=== PATIENT | male | born 1955 | race Caucasian/White ===

== ENCOUNTER 2018-03-30 13:20 | Emergency (ER) | payer OTHER ==
[2018-03-30] MEDS: HYDROCODONE/APAP (10/325) TAB PO ×2 (14:06→15:25)
== END 2018-03-30 15:40 | disposition home or self-care (01) ==
LOC: E/R 13:20
DX: G89.4 Chronic pain syndrome (principal); R40.2142 Coma scale, eyes open, spontaneous, at arrival to emergency department; R40.2362 Coma scale, best motor response, obeys commands, at arrival to emergency department; R40.2252 Coma scale, best verbal response, oriented, at arrival to emergency department; Z87.891 Personal history of nicotine dependence
CPT/HCPCS: 99283; Z7610

== ENCOUNTER 2018-07-13 19:26 | Inpatient (IN) | payer OTHER ==
[2018-07-13] MEDS: PIPER-TAZO 3.375 GM IV (PMX) 100 ML IVPB (21:51)
[2018-07-13] MEDS ORDERED: ACETAMINOPHEN 325 MG TAB PO (23:30)
[2018-07-13] MEDS ORDERED: ONDANSETRON 4 MG INJ IV (23:30)
[2018-07-14] MEDS: morphine (ER) 30 MG TAB PO ×2 (00:39→22:43)
[2018-07-14] MEDS: METHADONE 10 MG TAB PO ×2 (00:39→20:36)
[2018-07-14] MEDS: BUSPIRONE 10 MG TAB PO ×2 (00:40→21:20)
[2018-07-14] MEDS ORDERED: LIDOCAINE 1% (MPF) 5 ML VIAL SC (05:00)
[2018-07-14] MEDS ORDERED: PENDING SANTYL ORDER FOR WOUND CARE XX (07:00)
[2018-07-14 07:13] LABS: ADD MAN DIFF? NO; BASOPHILS % 0.5 % (0.0-2.0); EOSINOPHILS # 0.1 10^3/ul (0.0-0.5); EOSINOPHILS % 1.6 % (0.0-7.0); HEMATOCRIT 32.7 % (42.0-52.0); HEMOGLOBIN 10.3 g/dl (14.0-18.0); LYMPHOCYTES # 0.7 10^3/ul (0.8-2.9); LYMPHOCYTES % 11.4 % (15.0-51.0); MEAN CORPUSCULAR HEMOGLOBIN 29.9 pg (29.0-33.0); MEAN CORPUSCULAR HGB CONC 31.5 g/dl (32.0-37.0); MEAN CORPUSCULAR VOLUME 95.1 fl (82.0-101.0); MEAN PLATELET VOLUME 9.2 fl (7.4-10.4); MONOCYTE # 0.5 10^3/ul (0.3-0.9); MONOCYTES % 8.5 % (0.0-11.0); NEUTROPHIL # 4.9 10^3/ul (1.6-7.5); NEUTROPHILS % 77.5 % (39.0-77.0); PLATELET COUNT 137 10^3/UL (140-415); RED BLOOD COUNT 3.44 10^6/ul (4.70-6.10); RED CELL DISTRIBUTION WIDTH 13.6 % (11.5-14.5)
[2018-07-14 07:13] LABS: WHITE BLOOD COUNT 6.3 10^3/ul (4.8-10.8)
[2018-07-14 07:32] LABS: ANION GAP 3 (5-13); BLOOD UREA NITROGEN 5 mg/dl (7-20); CALCIUM 8.3 mg/dl (8.4-10.2); CARBON DIOXIDE 31 mmol/L (21-31); CHLORIDE 108 mmol/L (97-110); CREATININE 0.63 mg/dl (0.61-1.24); Estimated GFR > 60 mL/min (>60); GLUCOSE 122 mg/dl (70-220); POTASSIUM 3.9 mmol/L (3.5-5.1); SODIUM 142 mmol/L (135-144)
[2018-07-14] MEDS: NICOTINE (21 MG/24 HR) PATCH TRANSDERM (08:54)
[2018-07-14] MEDS: LIDOCAINE 1% (MPF) 5 ML VIAL SC (11:45)
[2018-07-14] MEDS: morphine 2 MG INJ IM ×2 (12:59→17:07)
[2018-07-14] MEDS: CYCLOBENZAPRINE 10 MG TAB PO ×2 (13:00→21:20)
[2018-07-14] MEDS ORDERED: ACETAMINOPHEN 325 MG TAB PO (14:30)
[2018-07-14] MEDS ORDERED: morphine (ER) 15 MG TAB PO (14:30)
[2018-07-14] MEDS: morphine (ER) 15 MG TAB PO (14:31)
[2018-07-14] MEDS ORDERED: VANCOMYCIN IV PER PHARMACY XX (17:00)
[2018-07-14] MEDS: VANCOMYCIN HCL 1.75 GM in SOD CHLORIDE 0.9% 500 ML IVPB (20:36)
[2018-07-14] MEDS: DOCUSATE SODIUM 100 MG CAP PO (21:20)
[2018-07-14] MEDS: MIRTAZAPINE 15 MG TAB PO (22:43)
[2018-07-15] MEDS: MEROPENEM 1 GM/50ML(PMX) 50 ML IVPB ×4 (00:55→22:29)
[2018-07-15] MEDS ORDERED: LEVOTHYROXINE 25 MCG TAB (05:06)
[2018-07-15] MEDS: morphine 2 MG INJ IV ×2 (06:02→13:04)
[2018-07-15] MEDS: LEVOTHYROXINE 25 MCG TAB PO (06:02)
[2018-07-15] MEDS ORDERED: morphine (ER) 15 MG TAB PO (09:00)
[2018-07-15] MEDS: VANCOMYCIN HCL 1.5 GM in SOD CHLORIDE 0.9% 250 ML IVPB ×2 (09:21→23:12)
[2018-07-15] MEDS: BUSPIRONE 10 MG TAB PO ×2 (09:21→22:31)
[2018-07-15] MEDS: DOCUSATE SODIUM 100 MG CAP PO ×2 (09:21→22:29)
[2018-07-15] MEDS: CYCLOBENZAPRINE 10 MG TAB PO ×3 (09:21→22:29)
[2018-07-15] MEDS: morphine (ER) 15 MG TAB PO ×2 (09:21→13:58)
[2018-07-15] MEDS: ASPIRIN (EC) 81 MG TAB PO (09:21)
[2018-07-15] MEDS: METHADONE 10 MG TAB PO ×3 (09:22→22:34)
[2018-07-15] MEDS: NICOTINE (21 MG/24 HR) PATCH TRANSDERM (09:25)
[2018-07-15] MEDS: MAGNESIUM OXIDE 400 MG TAB PO (09:28)
[2018-07-15] MEDS: AMMONIUM LACTATE 12% 225 GM LOT TOP (13:26)
[2018-07-15] MEDS: COLLAGENASE 5 GM (UD JAR) TOP (13:27)
[2018-07-15] MEDS: SODIUM HYPOCHLORITE (1/40) 1 LITER BTL IRR (15:30)
[2018-07-15 15:51] LABS: C-REACTIVE PROTEIN 2.7 mg/dl (0.0-0.9)
[2018-07-15 16:46] LABS: ERYTHROCYTE SEDIMENTATION RATE 30 mm/Hr (0-20)
[2018-07-15] MEDS: morphine (ER) 30 MG TAB PO (22:30)
[2018-07-15] MEDS: MIRTAZAPINE 15 MG TAB PO (22:30)
[2018-07-16] MEDS: morphine 2 MG INJ IV ×3 (02:39→16:56)
[2018-07-16] MEDS: MEROPENEM 1 GM/50ML(PMX) 50 ML IVPB ×3 (05:39→21:09)
[2018-07-16] MEDS: LEVOTHYROXINE 25 MCG TAB PO (05:40)
[2018-07-16 05:55] LABS: ADD MAN DIFF? NO
[2018-07-16 06:01] LABS: BASOPHILS % 0.3 % (0.0-2.0); EOSINOPHILS # 0.2 10^3/ul (0.0-0.5); EOSINOPHILS % 7.5 % (0.0-7.0); HEMATOCRIT 30.6 % (42.0-52.0); HEMOGLOBIN 9.5 g/dl (14.0-18.0); LYMPHOCYTES # 0.8 10^3/ul (0.8-2.9); LYMPHOCYTES % 23.8 % (15.0-51.0); MEAN CORPUSCULAR HEMOGLOBIN 29.6 pg (29.0-33.0); MEAN CORPUSCULAR VOLUME 95.3 fl (82.0-101.0); MEAN PLATELET VOLUME 8.9 fl (7.4-10.4); MONOCYTE # 0.4 10^3/ul (0.3-0.9); MONOCYTES % 12.2 % (0.0-11.0); NEUTROPHIL # 1.8 10^3/ul (1.6-7.5); NEUTROPHILS % 55.3 % (39.0-77.0); PLATELET COUNT 122 10^3/UL (140-415); RED BLOOD COUNT 3.21 10^6/ul (4.70-6.10); RED CELL DISTRIBUTION WIDTH 13.5 % (11.5-14.5)
[2018-07-16 06:01] LABS: WHITE BLOOD COUNT 3.2 10^3/ul (4.8-10.8)
[2018-07-16 06:47] LABS: CREATININE 0.56 mg/dl (0.61-1.24)
[2018-07-16 06:56] LABS: ANION GAP 5 (5-13); BLOOD UREA NITROGEN 5 mg/dl (7-20); CALCIUM 7.9 mg/dl (8.4-10.2); CARBON DIOXIDE 26 mmol/L (21-31); CHLORIDE 110 mmol/L (97-110); CREATININE 0.55 mg/dl (0.61-1.24); Estimated GFR > 60 mL/min (>60); GLUCOSE 109 mg/dl (70-220); POTASSIUM 3.4 mmol/L (3.5-5.1); SODIUM 141 mmol/L (135-144)
[2018-07-16] MEDS: BUSPIRONE 10 MG TAB PO ×2 (08:14→20:57)
[2018-07-16] MEDS: CYCLOBENZAPRINE 10 MG TAB PO ×3 (08:14→20:57)
[2018-07-16] MEDS: morphine (ER) 15 MG TAB PO ×2 (08:15→13:54)
[2018-07-16] MEDS: DOCUSATE SODIUM 100 MG CAP PO ×2 (08:15→20:57)
[2018-07-16] MEDS: ASPIRIN (EC) 81 MG TAB PO (08:15)
[2018-07-16] MEDS: MAGNESIUM OXIDE 400 MG TAB PO (08:15)
[2018-07-16] MEDS: METHADONE 10 MG TAB PO ×3 (08:16→20:57)
[2018-07-16] MEDS: NICOTINE (21 MG/24 HR) PATCH TRANSDERM (08:16)
[2018-07-16] MEDS ORDERED: SODIUM HYPOCHLORITE (1/40) 1 LITER BTL IRR (09:00)
[2018-07-16] MEDS: ARTIFICIAL TEARS 15 ML OPH BOTH EYES ×2 (09:13→22:31)
[2018-07-16] MEDS: VANCOMYCIN HCL 1.5 GM in SOD CHLORIDE 0.9% 250 ML IVPB ×3 (09:13→22:19)
[2018-07-16 10:50] LABS: VANCOMYCIN,TROUGH 12.7 ug/ml (10.0-20.0)
[2018-07-16] MEDS: COLLAGENASE 5 GM (UD JAR) TOP (11:26)
[2018-07-16] MEDS: SODIUM HYPOCHLORITE (1/40) 1 LITER BTL IRR (11:27)
[2018-07-16] MEDS: POTASSIUM CHLORIDE (SR) 20 MEQ TAB PO (12:07)
[2018-07-16] MEDS: AMMONIUM LACTATE 12% 225 GM LOT TOP (15:08)
[2018-07-16] MEDS: MIRTAZAPINE 15 MG TAB PO (20:57)
[2018-07-16] MEDS: morphine (ER) 30 MG TAB PO (21:01)
[2018-07-17] MEDS: morphine 2 MG INJ IV (02:24)
[2018-07-17] MEDS: MEROPENEM 1 GM/50ML(PMX) 50 ML IVPB ×2 (05:13→13:51)
[2018-07-17 05:22] LABS: ADD MAN DIFF? NO
[2018-07-17 05:41] LABS: BASOPHILS % 1.1 % (0.0-2.0); EOSINOPHILS # 0.3 10^3/ul (0.0-0.5); EOSINOPHILS % 9.8 % (0.0-7.0); HEMATOCRIT 29.7 % (42.0-52.0); HEMOGLOBIN 9.5 g/dl (14.0-18.0); LYMPHOCYTES # 0.9 10^3/ul (0.8-2.9); LYMPHOCYTES % 33.1 % (15.0-51.0); MEAN CORPUSCULAR HEMOGLOBIN 29.7 pg (29.0-33.0); MEAN CORPUSCULAR VOLUME 92.8 fl (82.0-101.0); MEAN PLATELET VOLUME 8.9 fl (7.4-10.4); MONOCYTE # 0.3 10^3/ul (0.3-0.9); MONOCYTES % 10.9 % (0.0-11.0); NEUTROPHIL # 1.2 10^3/ul (1.6-7.5); NEUTROPHILS % 44.3 % (39.0-77.0); PLATELET COUNT 127 10^3/UL (140-415); RED CELL DISTRIBUTION WIDTH 13.6 % (11.5-14.5)
[2018-07-17 05:41] LABS: WHITE BLOOD COUNT 2.7 10^3/ul (4.8-10.8)
[2018-07-17 06:09] LABS: ANION GAP 5 (5-13); BLOOD UREA NITROGEN 4 mg/dl (7-20); CARBON DIOXIDE 28 mmol/L (21-31); CHLORIDE 110 mmol/L (97-110); CREATININE 0.53 mg/dl (0.61-1.24); Estimated GFR > 60 mL/min (>60); GLUCOSE 102 mg/dl (70-220); POTASSIUM 3.7 mmol/L (3.5-5.1); SODIUM 143 mmol/L (135-144)
[2018-07-17] MEDS: LEVOTHYROXINE 25 MCG TAB PO (07:01)
[2018-07-17] MEDS: CYCLOBENZAPRINE 10 MG TAB PO ×3 (09:46→21:03)
[2018-07-17] MEDS: SODIUM HYPOCHLORITE (1/40) 1 LITER BTL IRR (09:46)
[2018-07-17] MEDS: ASPIRIN (EC) 81 MG TAB PO (09:46)
[2018-07-17] MEDS: MAGNESIUM OXIDE 400 MG TAB PO (09:46)
[2018-07-17] MEDS: DOCUSATE SODIUM 100 MG CAP PO ×2 (09:46→21:03)
[2018-07-17] MEDS: VANCOMYCIN HCL 1.5 GM in SOD CHLORIDE 0.9% 250 ML IVPB ×2 (09:46→21:03)
[2018-07-17] MEDS: METHADONE 10 MG TAB PO ×3 (09:47→21:03)
[2018-07-17] MEDS: AMMONIUM LACTATE 12% 225 GM LOT TOP (09:47)
[2018-07-17] MEDS: COLLAGENASE 5 GM (UD JAR) TOP (09:47)
[2018-07-17] MEDS: NICOTINE (21 MG/24 HR) PATCH TRANSDERM (09:47)
[2018-07-17] MEDS: BUSPIRONE 10 MG TAB PO ×2 (09:50→21:03)
[2018-07-17] MEDS: morphine (ER) 15 MG TAB PO ×2 (09:50→13:51)
[2018-07-17] MEDS: morphine (ER) 30 MG TAB PO (21:03)
[2018-07-17] MEDS: MIRTAZAPINE 15 MG TAB PO (21:03)
[2018-07-17] MEDS: ARTIFICIAL TEARS 15 ML OPH BOTH EYES (21:10)
[2018-07-18] MEDS: morphine 2 MG INJ IV ×2 (00:15→17:07)
[2018-07-18] MEDS: MEROPENEM 1 GM/50ML(PMX) 50 ML IVPB ×3 (00:28→13:11)
[2018-07-18] MEDS: LEVOTHYROXINE 25 MCG TAB PO (06:38)
[2018-07-18] MEDS: CYCLOBENZAPRINE 10 MG TAB PO ×3 (08:48→20:22)
[2018-07-18] MEDS: COLLAGENASE 5 GM (UD JAR) TOP (08:48)
[2018-07-18] MEDS: NICOTINE (21 MG/24 HR) PATCH TRANSDERM (08:48)
[2018-07-18] MEDS: ASPIRIN (EC) 81 MG TAB PO (08:49)
[2018-07-18] MEDS: morphine (ER) 15 MG TAB PO ×2 (08:49→13:13)
[2018-07-18] MEDS: BUSPIRONE 10 MG TAB PO ×2 (08:49→20:23)
[2018-07-18] MEDS: DOCUSATE SODIUM 100 MG CAP PO ×2 (08:49→20:22)
[2018-07-18] MEDS: METHADONE 10 MG TAB PO ×3 (08:49→20:23)
[2018-07-18] MEDS: MAGNESIUM OXIDE 400 MG TAB PO (08:49)
[2018-07-18] MEDS: SODIUM HYPOCHLORITE (1/40) 1 LITER BTL IRR (08:50)
[2018-07-18] MEDS: AMMONIUM LACTATE 12% 225 GM LOT TOP (08:50)
[2018-07-18 08:51] LABS: CREATININE 0.49 mg/dl (0.61-1.24)
[2018-07-18 08:51] LABS: BLOOD UREA NITROGEN 4 mg/dl (7-20)
[2018-07-18 08:56] LABS: VANCOMYCIN,TROUGH 12.4 ug/ml (10.0-20.0)
[2018-07-18] MEDS: VANCOMYCIN HCL 1.5 GM in SOD CHLORIDE 0.9% 250 ML IVPB ×2 (09:59→20:26)
[2018-07-18] MEDS: MIRTAZAPINE 15 MG TAB PO (20:22)
[2018-07-18] MEDS: morphine (ER) 30 MG TAB PO (20:23)
[2018-07-19] MEDS: MEROPENEM 1 GM/50ML(PMX) 50 ML IVPB ×4 (00:10→22:29)
[2018-07-19 05:26] LABS: ADD MAN DIFF? NO
[2018-07-19 05:37] LABS: WHITE BLOOD COUNT 3.3 10^3/ul (4.8-10.8)
[2018-07-19 05:37] LABS: BASOPHILS % 0.6 % (0.0-2.0); EOSINOPHILS # 0.3 10^3/ul (0.0-0.5); EOSINOPHILS % 7.5 % (0.0-7.0); HEMATOCRIT 30.7 % (42.0-52.0); HEMOGLOBIN 9.8 g/dl (14.0-18.0); LYMPHOCYTES % 29.5 % (15.0-51.0); MEAN CORPUSCULAR HEMOGLOBIN 30.1 pg (29.0-33.0); MEAN CORPUSCULAR HGB CONC 31.9 g/dl (32.0-37.0); MEAN CORPUSCULAR VOLUME 94.2 fl (82.0-101.0); MEAN PLATELET VOLUME 9.1 fl (7.4-10.4); MONOCYTE # 0.3 10^3/ul (0.3-0.9); MONOCYTES % 8.4 % (0.0-11.0); NEUTROPHIL # 1.8 10^3/ul (1.6-7.5); NEUTROPHILS % 53.7 % (39.0-77.0); PLATELET COUNT 109 10^3/UL (140-415); RED BLOOD COUNT 3.26 10^6/ul (4.70-6.10); RED CELL DISTRIBUTION WIDTH 13.8 % (11.5-14.5)
[2018-07-19 06:05] LABS: ANION GAP 5 (5-13); BLOOD UREA NITROGEN 6 mg/dl (7-20); CARBON DIOXIDE 32 mmol/L (21-31); CHLORIDE 107 mmol/L (97-110); CREATININE 0.54 mg/dl (0.61-1.24); Estimated GFR > 60 mL/min (>60); GLUCOSE 88 mg/dl (70-220); POTASSIUM 3.7 mmol/L (3.5-5.1); SODIUM 144 mmol/L (135-144)
[2018-07-19] MEDS: LEVOTHYROXINE 25 MCG TAB PO (06:12)
[2018-07-19] MEDS: DOCUSATE SODIUM 100 MG CAP PO ×2 (10:44→21:35)
[2018-07-19] MEDS: BUSPIRONE 10 MG TAB PO ×2 (10:44→21:35)
[2018-07-19] MEDS: VANCOMYCIN HCL 1.5 GM in SOD CHLORIDE 0.9% 250 ML IVPB ×2 (10:44→21:34)
[2018-07-19] MEDS: ASPIRIN (EC) 81 MG TAB PO (10:45)
[2018-07-19] MEDS: MAGNESIUM OXIDE 400 MG TAB PO (10:45)
[2018-07-19] MEDS: METHADONE 10 MG TAB PO ×3 (10:45→21:35)
[2018-07-19] MEDS: CYCLOBENZAPRINE 10 MG TAB PO ×3 (10:45→21:35)
[2018-07-19] MEDS: COLLAGENASE 5 GM (UD JAR) TOP ×2 (10:46)
[2018-07-19] MEDS: morphine (ER) 15 MG TAB PO ×2 (10:46→15:16)
[2018-07-19] MEDS: NICOTINE (21 MG/24 HR) PATCH TRANSDERM (10:47)
[2018-07-19] MEDS: AMMONIUM LACTATE 12% 225 GM LOT TOP (10:47)
[2018-07-19] MEDS: SODIUM HYPOCHLORITE (1/40) 1 LITER BTL IRR (13:18)
[2018-07-19] MEDS: MIRTAZAPINE 15 MG TAB PO (21:35)
[2018-07-19] MEDS: morphine (ER) 30 MG TAB PO (21:35)
[2018-07-19] MEDS: ARTIFICIAL TEARS 15 ML OPH BOTH EYES (22:30)
[2018-07-20] MEDS: morphine 2 MG INJ IV ×2 (02:18→18:17)
[2018-07-20] MEDS: MEROPENEM 1 GM/50ML(PMX) 50 ML IVPB ×3 (05:47→22:13)
[2018-07-20] MEDS: LEVOTHYROXINE 25 MCG TAB PO (05:47)
[2018-07-20] MEDS: SODIUM HYPOCHLORITE (1/40) 1 LITER BTL IRR (08:47)
[2018-07-20] MEDS: AMMONIUM LACTATE 12% 225 GM LOT TOP (08:47)
[2018-07-20] MEDS: CYCLOBENZAPRINE 10 MG TAB PO ×3 (08:48→20:30)
[2018-07-20] MEDS: MAGNESIUM OXIDE 400 MG TAB PO (08:48)
[2018-07-20] MEDS: COLLAGENASE 5 GM (UD JAR) TOP ×2 (08:48)
[2018-07-20] MEDS: ASPIRIN (EC) 81 MG TAB PO (08:48)
[2018-07-20] MEDS: BUSPIRONE 10 MG TAB PO ×2 (08:48→20:29)
[2018-07-20] MEDS: METHADONE 10 MG TAB PO ×3 (08:49→20:30)
[2018-07-20] MEDS: DOCUSATE SODIUM 100 MG CAP PO ×2 (08:49→20:30)
[2018-07-20] MEDS: NICOTINE (21 MG/24 HR) PATCH TRANSDERM (08:49)
[2018-07-20] MEDS: VANCOMYCIN HCL 1.5 GM in SOD CHLORIDE 0.9% 250 ML IVPB ×2 (08:49→22:01)
[2018-07-20] MEDS: morphine (ER) 15 MG TAB PO ×2 (08:51→14:07)
[2018-07-20] MEDS: morphine (ER) 30 MG TAB PO (20:29)
[2018-07-20] MEDS: MIRTAZAPINE 15 MG TAB PO (20:30)
[2018-07-21] MEDS: MEROPENEM 1 GM/50ML(PMX) 50 ML IVPB ×3 (05:47→20:39)
[2018-07-21] MEDS: LEVOTHYROXINE 25 MCG TAB PO (05:50)
[2018-07-21] MEDS: ARTIFICIAL TEARS 15 ML OPH BOTH EYES (06:15)
[2018-07-21 06:17] LABS: ADD MAN DIFF? NO
[2018-07-21 06:31] LABS: BASOPHILS % 0.6 % (0.0-2.0); EOSINOPHILS # 0.2 10^3/ul (0.0-0.5); EOSINOPHILS % 5.5 % (0.0-7.0); HEMATOCRIT 31.6 % (42.0-52.0); LYMPHOCYTES # 1.1 10^3/ul (0.8-2.9); LYMPHOCYTES % 30.3 % (15.0-51.0); MEAN CORPUSCULAR HEMOGLOBIN 29.6 pg (29.0-33.0); MEAN CORPUSCULAR HGB CONC 31.6 g/dl (32.0-37.0); MEAN CORPUSCULAR VOLUME 93.5 fl (82.0-101.0); MEAN PLATELET VOLUME 9.1 fl (7.4-10.4); MONOCYTE # 0.3 10^3/ul (0.3-0.9); MONOCYTES % 8.9 % (0.0-11.0); NEUTROPHIL # 1.9 10^3/ul (1.6-7.5); NEUTROPHILS % 54.4 % (39.0-77.0); PLATELET COUNT 115 10^3/UL (140-415); RED BLOOD COUNT 3.38 10^6/ul (4.70-6.10); RED CELL DISTRIBUTION WIDTH 13.8 % (11.5-14.5)
[2018-07-21 06:31] LABS: WHITE BLOOD COUNT 3.5 10^3/ul (4.8-10.8)
[2018-07-21 06:50] LABS: BLOOD UREA NITROGEN 7 mg/dl (7-20); CALCIUM 8.2 mg/dl (8.4-10.2); CARBON DIOXIDE 30 mmol/L (21-31); CREATININE 0.48 mg/dl (0.61-1.24); Estimated GFR > 60 mL/min (>60); GLUCOSE 86 mg/dl (70-220); POTASSIUM 3.7 mmol/L (3.5-5.1); SODIUM 142 mmol/L (135-144)
[2018-07-21 07:20] LABS: ANION GAP 2 (5-13); CHLORIDE 110 mmol/L (97-110)
[2018-07-21] MEDS: COLLAGENASE 5 GM (UD JAR) TOP ×2 (09:37)
[2018-07-21] MEDS: MAGNESIUM OXIDE 400 MG TAB PO (09:37)
[2018-07-21] MEDS: NICOTINE (21 MG/24 HR) PATCH TRANSDERM (09:37)
[2018-07-21] MEDS: METHADONE 10 MG TAB PO ×3 (09:38→20:34)
[2018-07-21] MEDS: DOCUSATE SODIUM 100 MG CAP PO ×2 (09:38→20:35)
[2018-07-21] MEDS: BUSPIRONE 10 MG TAB PO ×2 (09:38→20:35)
[2018-07-21] MEDS: ASPIRIN (EC) 81 MG TAB PO (09:38)
[2018-07-21] MEDS: CYCLOBENZAPRINE 10 MG TAB PO ×3 (09:40→20:34)
[2018-07-21] MEDS: AMMONIUM LACTATE 12% 225 GM LOT TOP (09:41)
[2018-07-21] MEDS: morphine (ER) 15 MG TAB PO ×2 (09:41→14:21)
[2018-07-21] MEDS: SODIUM HYPOCHLORITE (1/40) 1 LITER BTL IRR (09:41)
[2018-07-21] MEDS: VANCOMYCIN HCL 1.5 GM in SOD CHLORIDE 0.9% 250 ML IVPB ×2 (09:42→21:32)
[2018-07-21] MEDS: MIRTAZAPINE 15 MG TAB PO (20:34)
[2018-07-21] MEDS: morphine (ER) 30 MG TAB PO (21:32)
[2018-07-22] MEDS: MEROPENEM 1 GM/50ML(PMX) 50 ML IVPB ×3 (06:24→21:45)
[2018-07-22] MEDS: MAGNESIUM OXIDE 400 MG TAB PO (08:19)
[2018-07-22] MEDS: LEVOTHYROXINE 25 MCG TAB PO (08:19)
[2018-07-22] MEDS: METHADONE 10 MG TAB PO ×3 (08:19→20:27)
[2018-07-22] MEDS: BUSPIRONE 10 MG TAB PO ×2 (08:19→20:27)
[2018-07-22] MEDS: CYCLOBENZAPRINE 10 MG TAB PO ×3 (08:19→20:27)
[2018-07-22] MEDS: DOCUSATE SODIUM 100 MG CAP PO ×2 (08:19→20:26)
[2018-07-22] MEDS: ASPIRIN (EC) 81 MG TAB PO (08:19)
[2018-07-22] MEDS: NICOTINE (21 MG/24 HR) PATCH TRANSDERM (08:21)
[2018-07-22] MEDS: morphine (ER) 15 MG TAB PO ×2 (09:06→14:50)
[2018-07-22] MEDS: VANCOMYCIN HCL 1.5 GM in SOD CHLORIDE 0.9% 250 ML IVPB (09:07)
[2018-07-22] MEDS: COLLAGENASE 5 GM (UD JAR) TOP ×2 (13:41→13:42)
[2018-07-22] MEDS: SODIUM HYPOCHLORITE (1/40) 1 LITER BTL IRR (13:43)
[2018-07-22] MEDS: AMMONIUM LACTATE 12% 225 GM LOT TOP (13:43)
[2018-07-22] MEDS: AMOXICILLIN 500 MG CAP PO ×2 (13:45→21:46)
[2018-07-22] MEDS: MIRTAZAPINE 15 MG TAB PO (20:27)
[2018-07-22] MEDS: morphine (ER) 30 MG TAB PO (20:28)
[2018-07-22] MEDS: ARTIFICIAL TEARS 15 ML OPH BOTH EYES (21:50)
[2018-07-23] MEDS: MEROPENEM 1 GM/50ML(PMX) 50 ML IVPB ×3 (06:11→21:07)
[2018-07-23] MEDS: LEVOTHYROXINE 25 MCG TAB PO (06:11)
[2018-07-23] MEDS: AMOXICILLIN 500 MG CAP PO ×3 (06:11→21:07)
[2018-07-23] MEDS: BUSPIRONE 10 MG TAB PO ×2 (09:48→21:02)
[2018-07-23] MEDS: MAGNESIUM OXIDE 400 MG TAB PO (09:48)
[2018-07-23] MEDS: DOCUSATE SODIUM 100 MG CAP PO ×2 (09:48→21:03)
[2018-07-23] MEDS: ASPIRIN (EC) 81 MG TAB PO (09:48)
[2018-07-23] MEDS: CYCLOBENZAPRINE 10 MG TAB PO ×3 (09:48→21:03)
[2018-07-23] MEDS: NICOTINE (21 MG/24 HR) PATCH TRANSDERM (09:49)
[2018-07-23] MEDS: METHADONE 10 MG TAB PO ×3 (09:49→21:02)
[2018-07-23] MEDS: COLLAGENASE 5 GM (UD JAR) TOP ×2 (11:21→11:22)
[2018-07-23] MEDS: SODIUM HYPOCHLORITE (1/40) 1 LITER BTL IRR (11:21)
[2018-07-23] MEDS: AMMONIUM LACTATE 12% 225 GM LOT TOP (11:23)
[2018-07-23] MEDS: morphine (ER) 15 MG TAB PO ×2 (11:58→15:03)
[2018-07-23] MEDS: morphine (ER) 30 MG TAB PO (21:02)
[2018-07-23] MEDS: MIRTAZAPINE 15 MG TAB PO (21:07)
[2018-07-24] MEDS: AMOXICILLIN 500 MG CAP PO ×3 (05:59→21:04)
[2018-07-24] MEDS: MEROPENEM 1 GM/50ML(PMX) 50 ML IVPB ×3 (05:59→21:05)
[2018-07-24] MEDS: LEVOTHYROXINE 25 MCG TAB PO (05:59)
[2018-07-24] MEDS: morphine 2 MG INJ IV ×3 (07:38→18:43)
[2018-07-24] MEDS: MAGNESIUM OXIDE 400 MG TAB PO (08:53)
[2018-07-24] MEDS: BUSPIRONE 10 MG TAB PO ×2 (08:53→21:02)
[2018-07-24] MEDS: DOCUSATE SODIUM 100 MG CAP PO ×2 (08:53→21:03)
[2018-07-24] MEDS: ASPIRIN (EC) 81 MG TAB PO (08:53)
[2018-07-24] MEDS: CYCLOBENZAPRINE 10 MG TAB PO ×3 (08:53→21:02)
[2018-07-24] MEDS: METHADONE 10 MG TAB PO ×3 (08:54→21:03)
[2018-07-24] MEDS: morphine (ER) 15 MG TAB PO ×2 (08:54→14:00)
[2018-07-24] MEDS: NICOTINE (21 MG/24 HR) PATCH TRANSDERM (08:55)
[2018-07-24] MEDS: ARTIFICIAL TEARS 15 ML OPH BOTH EYES ×2 (12:30→18:44)
[2018-07-24] MEDS: SODIUM HYPOCHLORITE (1/40) 1 LITER BTL IRR (15:38)
[2018-07-24] MEDS: COLLAGENASE 5 GM (UD JAR) TOP ×2 (15:39)
[2018-07-24] MEDS: AMMONIUM LACTATE 12% 225 GM LOT TOP (15:39)
[2018-07-24] MEDS: MIRTAZAPINE 15 MG TAB PO (21:03)
[2018-07-24] MEDS: morphine (ER) 30 MG TAB PO (21:07)
[2018-07-25] MEDS: morphine 2 MG INJ IV ×2 (00:30→06:00)
[2018-07-25] MEDS: AMOXICILLIN 500 MG CAP PO ×3 (05:51→21:53)
[2018-07-25] MEDS: MEROPENEM 1 GM/50ML(PMX) 50 ML IVPB ×3 (05:51→21:52)
[2018-07-25] MEDS: LEVOTHYROXINE 25 MCG TAB PO (05:51)
[2018-07-25] MEDS: MAGNESIUM OXIDE 400 MG TAB PO (09:49)
[2018-07-25] MEDS: ASPIRIN (EC) 81 MG TAB PO (09:49)
[2018-07-25] MEDS: BUSPIRONE 10 MG TAB PO ×2 (09:49→21:45)
[2018-07-25] MEDS: DOCUSATE SODIUM 100 MG CAP PO ×2 (09:49→21:45)
[2018-07-25] MEDS: NICOTINE (21 MG/24 HR) PATCH TRANSDERM (09:49)
[2018-07-25] MEDS: CYCLOBENZAPRINE 10 MG TAB PO ×3 (09:49→21:44)
[2018-07-25] MEDS: METHADONE 10 MG TAB PO ×3 (09:49→21:46)
[2018-07-25] MEDS: COLLAGENASE 5 GM (UD JAR) TOP ×2 (09:50→09:55)
[2018-07-25] MEDS: morphine (ER) 15 MG TAB PO ×2 (09:55→13:58)
[2018-07-25] MEDS: AMMONIUM LACTATE 12% 225 GM LOT TOP (09:56)
[2018-07-25] MEDS: SODIUM HYPOCHLORITE (1/40) 1 LITER BTL IRR (09:56)
[2018-07-25] MEDS: ARTIFICIAL TEARS 15 ML OPH BOTH EYES (13:58)
[2018-07-25] MEDS: morphine (ER) 30 MG TAB PO (21:45)
[2018-07-25] MEDS: MIRTAZAPINE 15 MG TAB PO (21:45)
[2018-07-26] MEDS: MEROPENEM 1 GM/50ML(PMX) 50 ML IVPB ×3 (05:44→21:31)
[2018-07-26] MEDS: AMOXICILLIN 500 MG CAP PO ×3 (05:44→21:31)
[2018-07-26 06:05] LABS: ADD MAN DIFF? NO
[2018-07-26 06:12] LABS: BASOPHILS % 0.5 % (0.0-2.0); EOSINOPHILS # 0.2 10^3/ul (0.0-0.5); EOSINOPHILS % 5.8 % (0.0-7.0); HEMATOCRIT 31.1 % (42.0-52.0); LYMPHOCYTES # 1.2 10^3/ul (0.8-2.9); MEAN CORPUSCULAR HEMOGLOBIN 30.1 pg (29.0-33.0); MEAN CORPUSCULAR HGB CONC 32.2 g/dl (32.0-37.0); MEAN CORPUSCULAR VOLUME 93.7 fl (82.0-101.0); MEAN PLATELET VOLUME 9.4 fl (7.4-10.4); MONOCYTE # 0.4 10^3/ul (0.3-0.9); MONOCYTES % 10.4 % (0.0-11.0); NEUTROPHIL # 2.3 10^3/ul (1.6-7.5); NEUTROPHILS % 55.1 % (39.0-77.0); PLATELET COUNT 106 10^3/UL (140-415); RED BLOOD COUNT 3.32 10^6/ul (4.70-6.10); RED CELL DISTRIBUTION WIDTH 14.5 % (11.5-14.5)
[2018-07-26 06:12] LABS: WHITE BLOOD COUNT 4.1 10^3/ul (4.8-10.8)
[2018-07-26] MEDS: LEVOTHYROXINE 25 MCG TAB PO (06:42)
[2018-07-26 07:45] LABS: ANION GAP 7 (5-13); BLOOD UREA NITROGEN 10 mg/dl (7-20); CALCIUM 8.3 mg/dl (8.4-10.2); CARBON DIOXIDE 28 mmol/L (21-31); CHLORIDE 106 mmol/L (97-110); CREATININE 0.55 mg/dl (0.61-1.24); Estimated GFR > 60 mL/min (>60); GLUCOSE 95 mg/dl (70-220); POTASSIUM 3.8 mmol/L (3.5-5.1); SODIUM 141 mmol/L (135-144)
[2018-07-26] MEDS: SODIUM HYPOCHLORITE (1/40) 1 LITER BTL IRR ×2 (09:00→16:10)
[2018-07-26] MEDS: BUSPIRONE 10 MG TAB PO ×2 (09:33→21:30)
[2018-07-26] MEDS: ASPIRIN (EC) 81 MG TAB PO (09:33)
[2018-07-26] MEDS: DOCUSATE SODIUM 100 MG CAP PO ×2 (09:33→21:30)
[2018-07-26] MEDS: MAGNESIUM OXIDE 400 MG TAB PO (09:33)
[2018-07-26] MEDS: CYCLOBENZAPRINE 10 MG TAB PO ×3 (09:33→21:30)
[2018-07-26] MEDS: NICOTINE (21 MG/24 HR) PATCH TRANSDERM (09:34)
[2018-07-26] MEDS: COLLAGENASE 5 GM (UD JAR) TOP ×2 (09:34)
[2018-07-26] MEDS: METHADONE 10 MG TAB PO ×3 (09:35→21:31)
[2018-07-26] MEDS: AMMONIUM LACTATE 12% 225 GM LOT TOP (09:36)
[2018-07-26] MEDS: morphine (ER) 15 MG TAB PO (09:36)
[2018-07-26] MEDS ORDERED: morphine (ER) 30 MG TAB PO (21:00)
[2018-07-26] MEDS: MIRTAZAPINE 15 MG TAB PO (21:30)
[2018-07-27] MEDS: AMOXICILLIN 500 MG CAP PO ×3 (05:34→21:48)
[2018-07-27] MEDS: MEROPENEM 1 GM/50ML(PMX) 50 ML IVPB ×3 (05:34→21:48)
[2018-07-27 06:16] LABS: INR 1.24; PROTIME 15.7 Sec (11.9-14.9); PT RATIO 1.2
[2018-07-27] MEDS: LEVOTHYROXINE 25 MCG TAB PO (06:27)
[2018-07-27 06:44] LABS: ALBUMIN 2.3 g/dl (3.3-4.9)
[2018-07-27] MEDS: COLLAGENASE 5 GM (UD JAR) TOP ×2 (09:37→09:43)
[2018-07-27] MEDS: CYCLOBENZAPRINE 10 MG TAB PO ×3 (09:40→21:56)
[2018-07-27] MEDS: DOCUSATE SODIUM 100 MG CAP PO ×2 (09:40→21:48)
[2018-07-27] MEDS: BUSPIRONE 10 MG TAB PO ×2 (09:41→21:48)
[2018-07-27] MEDS: morphine (ER) 30 MG TAB PO ×3 (09:41→21:55)
[2018-07-27] MEDS: MAGNESIUM OXIDE 400 MG TAB PO (09:41)
[2018-07-27] MEDS: METHADONE 10 MG TAB PO ×3 (09:41→21:55)
[2018-07-27] MEDS: NICOTINE (21 MG/24 HR) PATCH TRANSDERM (09:43)
[2018-07-27] MEDS: AMMONIUM LACTATE 12% 225 GM LOT TOP (09:43)
[2018-07-27] MEDS: ASPIRIN (EC) 81 MG TAB PO (09:44)
[2018-07-27] MEDS: SODIUM HYPOCHLORITE (1/40) 1 LITER BTL IRR (09:45)
[2018-07-27] MEDS: MIRTAZAPINE 15 MG TAB PO (21:49)
[2018-07-28] MEDS: MEROPENEM 1 GM/50ML(PMX) 50 ML IVPB ×3 (06:06→21:25)
[2018-07-28] MEDS: AMOXICILLIN 500 MG CAP PO ×3 (06:06→21:28)
[2018-07-28] MEDS: LEVOTHYROXINE 25 MCG TAB PO (06:07)
[2018-07-28] MEDS: ASPIRIN (EC) 81 MG TAB PO (09:16)
[2018-07-28] MEDS: COLLAGENASE 5 GM (UD JAR) TOP ×2 (09:16)
[2018-07-28] MEDS: METHADONE 10 MG TAB PO ×3 (09:16→21:22)
[2018-07-28] MEDS: morphine (ER) 30 MG TAB PO ×3 (09:16→22:38)
[2018-07-28] MEDS: CYCLOBENZAPRINE 10 MG TAB PO ×3 (09:17→21:23)
[2018-07-28] MEDS: NICOTINE (21 MG/24 HR) PATCH TRANSDERM (09:17)
[2018-07-28] MEDS: BUSPIRONE 10 MG TAB PO ×2 (09:17→21:22)
[2018-07-28] MEDS: DOCUSATE SODIUM 100 MG CAP PO ×2 (09:17→21:23)
[2018-07-28] MEDS: MAGNESIUM OXIDE 400 MG TAB PO (09:17)
[2018-07-28] MEDS: SODIUM HYPOCHLORITE (1/40) 1 LITER BTL IRR (12:22)
[2018-07-28] MEDS: AMMONIUM LACTATE 12% 225 GM LOT TOP (12:23)
[2018-07-28] MEDS: MIRTAZAPINE 15 MG TAB PO (21:23)
[2018-07-28] MEDS: morphine 2 MG INJ IV (23:34)
[2018-07-29] MEDS: AMOXICILLIN 500 MG CAP PO ×3 (05:23→22:23)
[2018-07-29] MEDS: MEROPENEM 1 GM/50ML(PMX) 50 ML IVPB ×3 (05:23→21:23)
[2018-07-29] MEDS: morphine 2 MG INJ IV (05:24)
[2018-07-29] MEDS: LEVOTHYROXINE 25 MCG TAB PO (05:24)
[2018-07-29] MEDS: SODIUM HYPOCHLORITE (1/40) 1 LITER BTL IRR (07:44)
[2018-07-29 07:56] LABS: ADD MAN DIFF? NO
[2018-07-29 07:58] LABS: WHITE BLOOD COUNT 3.4 10^3/ul (4.8-10.8)
[2018-07-29 07:58] LABS: ABNORMAL IP MESSAGE 1; BASOPHILS % 0.6 % (0.0-2.0); EOSINOPHILS # 0.2 10^3/ul (0.0-0.5); EOSINOPHILS % 4.7 % (0.0-7.0); HEMATOCRIT 28.4 % (42.0-52.0); HEMOGLOBIN 9.1 g/dl (14.0-18.0); LYMPHOCYTES % 29.4 % (15.0-51.0); MEAN CORPUSCULAR VOLUME 93.7 fl (82.0-101.0); MEAN PLATELET VOLUME 9.7 fl (7.4-10.4); MONOCYTE # 0.4 10^3/ul (0.3-0.9); NEUTROPHIL # 1.8 10^3/ul (1.6-7.5); PLATELET COUNT 91 10^3/UL (140-415); POSITIVE DIFF @See below; RED BLOOD COUNT 3.03 10^6/ul (4.70-6.10); RED CELL DISTRIBUTION WIDTH 14.6 % (11.5-14.5)
[2018-07-29] MEDS: AMMONIUM LACTATE 12% 225 GM LOT TOP (08:10)
[2018-07-29] MEDS: COLLAGENASE 5 GM (UD JAR) TOP ×2 (08:11)
[2018-07-29 08:12] LABS: ANION GAP 5 (5-13); BLOOD UREA NITROGEN 9 mg/dl (7-20); CALCIUM 8.2 mg/dl (8.4-10.2); CARBON DIOXIDE 30 mmol/L (21-31); CHLORIDE 108 mmol/L (97-110); CREATININE 0.55 mg/dl (0.61-1.24); Estimated GFR > 60 mL/min (>60); GLUCOSE 85 mg/dl (70-220); POTASSIUM 3.5 mmol/L (3.5-5.1); SODIUM 143 mmol/L (135-144)
[2018-07-29] MEDS: ASPIRIN (EC) 81 MG TAB PO (08:13)
[2018-07-29] MEDS: DOCUSATE SODIUM 100 MG CAP PO ×2 (08:13→21:13)
[2018-07-29] MEDS: MAGNESIUM OXIDE 400 MG TAB PO (08:13)
[2018-07-29] MEDS: CYCLOBENZAPRINE 10 MG TAB PO ×3 (08:15→21:13)
[2018-07-29] MEDS: morphine (ER) 30 MG TAB PO ×3 (08:15→21:13)
[2018-07-29] MEDS: METHADONE 10 MG TAB PO ×3 (08:15→21:13)
[2018-07-29] MEDS: BUSPIRONE 10 MG TAB PO ×2 (08:15→21:13)
[2018-07-29] MEDS: NICOTINE (21 MG/24 HR) PATCH TRANSDERM (08:16)
[2018-07-29] MEDS: MIRTAZAPINE 15 MG TAB PO (21:13)
[2018-07-30] MEDS: AMOXICILLIN 500 MG CAP PO ×2 (06:12→13:27)
[2018-07-30] MEDS: MEROPENEM 1 GM/50ML(PMX) 50 ML IVPB ×2 (06:12→13:27)
[2018-07-30] MEDS: LEVOTHYROXINE 25 MCG TAB PO (06:12)
[2018-07-30] MEDS: METHADONE 10 MG TAB PO ×2 (09:00→13:27)
[2018-07-30] MEDS: CYCLOBENZAPRINE 10 MG TAB PO ×2 (09:00→13:27)
[2018-07-30] MEDS: COLLAGENASE 5 GM (UD JAR) TOP ×2 (09:00→09:01)
[2018-07-30] MEDS: morphine (ER) 30 MG TAB PO ×2 (09:01→13:27)
[2018-07-30] MEDS: DOCUSATE SODIUM 100 MG CAP PO (09:01)
[2018-07-30] MEDS: BUSPIRONE 10 MG TAB PO (09:01)
[2018-07-30] MEDS: AMMONIUM LACTATE 12% 225 GM LOT TOP (09:01)
[2018-07-30] MEDS: ASPIRIN (EC) 81 MG TAB PO (09:01)
[2018-07-30] MEDS: MAGNESIUM OXIDE 400 MG TAB PO (09:01)
[2018-07-30] MEDS: NICOTINE (21 MG/24 HR) PATCH TRANSDERM (09:01)
[2018-07-30] MEDS: SODIUM HYPOCHLORITE (1/40) 1 LITER BTL IRR (09:11)
[2018-07-30 12:28] LABS: ADD MAN DIFF? NO
[2018-07-30 12:32] LABS: BASOPHILS % 1.1 % (0.0-2.0); EOSINOPHILS # 0.2 10^3/ul (0.0-0.5); EOSINOPHILS % 7.2 % (0.0-7.0); HEMATOCRIT 28.1 % (42.0-52.0); LYMPHOCYTES # 0.9 10^3/ul (0.8-2.9); LYMPHOCYTES % 35.5 % (15.0-51.0); MEAN CORPUSCULAR HEMOGLOBIN 29.6 pg (29.0-33.0); MEAN CORPUSCULAR VOLUME 92.4 fl (82.0-101.0); MEAN PLATELET VOLUME 10.9 fl (7.4-10.4); MONOCYTE # 0.3 10^3/ul (0.3-0.9); MONOCYTES % 12.8 % (0.0-11.0); NEUTROPHIL # 1.1 10^3/ul (1.6-7.5); PLATELET COUNT 113 10^3/UL (140-415); RED BLOOD COUNT 3.04 10^6/ul (4.70-6.10); RED CELL DISTRIBUTION WIDTH 14.6 % (11.5-14.5)
[2018-07-30 12:32] LABS: WHITE BLOOD COUNT 2.7 10^3/ul (4.8-10.8)
[2018-07-30 13:01] LABS: ANION GAP 2 (5-13); BLOOD UREA NITROGEN 8 mg/dl (7-20); CALCIUM 8.1 mg/dl (8.4-10.2); CARBON DIOXIDE 29 mmol/L (21-31); CHLORIDE 109 mmol/L (97-110); CREATININE 0.55 mg/dl (0.61-1.24); Estimated GFR > 60 mL/min (>60); GLUCOSE 122 mg/dl (70-220); POTASSIUM 3.4 mmol/L (3.5-5.1); SODIUM 140 mmol/L (135-144)
[2018-07-30] MEDS: POTASSIUM CHLORIDE (SR) 20 MEQ TAB PO (15:57)
== END 2018-07-30 18:25 | DRG 572 ==
LOC: E/R 19:26 → PP2 23:27
PROC: 0JBP0ZZ Excision of Left Lower Leg Subcutaneous Tissue and Fascia, Open Approach (ICD-10-PCS; principal; 2018-07-15)
PROC: 0JBN0ZZ Excision of Right Lower Leg Subcutaneous Tissue and Fascia, Open Approach (ICD-10-PCS; 2018-07-15)
PROC: 0JBP0ZZ Excision of Left Lower Leg Subcutaneous Tissue and Fascia, Open Approach (ICD-10-PCS; 2018-07-18)
PROC: 0JBN0ZZ Excision of Right Lower Leg Subcutaneous Tissue and Fascia, Open Approach (ICD-10-PCS; 2018-07-18)
DX: L03.116 Cellulitis of left lower limb (principal); L03.115 Cellulitis of right lower limb; I87.2 Venous insufficiency (chronic) (peripheral); K74.60 Unspecified cirrhosis of liver; I89.0 Lymphedema, not elsewhere classified; B19.20 Unspecified viral hepatitis C without hepatic coma; G89.4 Chronic pain syndrome; J44.9 Chronic obstructive pulmonary disease, unspecified; F17.200 Nicotine dependence, unspecified, uncomplicated; Z79.82 Long term (current) use of aspirin
CPT/HCPCS: 36569; 71045; 73590; 73630; 73630-LT; 76937; 80048; 80202; 82040; 82565; 84520; 85025; 85610; 85651; 86140; 87070; 87081; 93922; 99285-25